=== PATIENT | male | born 2000 | race Caucasian/White ===

== ENCOUNTER 2025-01-23 17:16 | Inpatient (IN) | payer OTHER, SELFPAY ==
--- NOTE | ~2025-01-23 | CT_ITS ---
CLINICAL HISTORY: RLQ abdominal pain CT ABDOMEN AND PELVIS WITH CONTRAST COMPARISON: None. FINDINGS: This study is positive for acute appendicitis. The appendix is dilated and thick-walled, and contains multiple appendicoliths, for example seen on coronal image 28 of series 7. Appendix measures 13 mm in caliber on this image. Mild adjacent periappendiceal stranding/haziness is noted, and there is a tiny amount of periappendiceal free fluid. A small to moderate amount of pelvic free fluid is noted on axial image 69 of series 3. No abscess or free air. No evidence of a bowel obstruction. A trace right-sided pleural effusion is suspected. There is minimal right basilar atelectasis. No focal liver lesion. Gallbladder is unremarkable. No visible stone. Stomach is underdistended which limits assessment. No CT evidence of acute pancreatitis. Spleen and adrenal glands are unremarkable. Contrast is noted within the proximal renal collecting systems. No hydronephrosis bilaterally. Urinary bladder is underdistended but appears thick-walled. Correlation with urinalysis is advised. Abdominal aorta is normal in caliber without evidence of an aneurysm or dissection. No lymphadenopathy. No evidence of a bowel containing hernia. The bone windows demonstrate no acute abnormalities. IMPRESSION: 1. Positive study for acute appendicitis, with the appendix noted to be dilated and thick-walled, measuring 13 mm in caliber. There is mild adjacent periappendiceal stranding/haziness and a tiny amount of periappendiceal free fluid. There is also a small to moderate amount of pelvic free fluid. No abscess or free air. Surgical consultation is advised. 2. Urinary bladder is underdistended but appears thick-walled. Correlation with urinalysis is advised. 3. Trace right pleural effusion is suspected. Minimal right basilar atelectasis. 4. Additional findings are detailed above. This document has been electronically signed by: Agustín Melgar M.D. on 01/23/2025 23:17:37
[2025-01-23 18:22] VITALS: BP 128/86; PULSE 86; RESP 16; TEMP 36.8; O2SAT 99; BMI 18.5
--- NOTE | 2025-01-23 18:28 | ED.GENADULT ---
HPI - General Adult General Chief complaint: Abdominal Pain Stated complaint: Lower abd pain/Seen at [facility] t-1 Time Seen by Provider: 01/23/25 21:30 Source: patient Mode of arrival: ambulatory Limitations: no limitations History of Present Illness ED Provider: Dr. Tatiana Cleaning HPI narrative: patient comes to the emergency room complaining of periumbilical and right lower quadrant pain that started approximately 27 hours ago. Patient states that yesterday he was complaining of epigastric pain when his symptoms started, he went to [facility]. Patient was diagnosed with gastritis, given famotidine, symptoms seem to help a bit, discharged home. Patient states that when he woke up this morning, had a bit of pain but this time in the periumbilical area, patient ate a bowl of cereal, then the pain started getting worse. She denies any diarrhea, denies fever chills. Patient states that he is constant nonradiating pain in the right lower quadrant at this time. Related Data Allergies Allergy/AdvReac Type Severity Reaction Status Date / Time cat dander [cats] Allergy Intermediate Itchy Eyes Verified 01/23/25 18:25 Seasonal Allergies Allergy Intermediate Itchy Eyes Verified 01/23/25 18:25 Review of Systems Review of Systems: Constitutional : No Weight loss, No Fever, No Chills, No Night Sweats, No Fatigue, No Malaise ENT/Mouth : No Hearing loss, No Ear Pain, No Nasal Congestion, No Sinus Pain, No Hoarseness, No sore throat, No Rhinorrhea, No Swallowing Difficulty Eyes: No Eye Pain, No Swelling, No Redness, No Foreign Body, No Discharge, No Vision Changes Cardiovascular : No Chest Pain, No SOB, No Dyspnea on Exertion, No Orthopnea, No Edema, No Palpitations Respiratory : No Cough, No Sputum, No Wheezing, No Smoke Exposure, No Dyspnea Gastrointestinal : Yesterday patient had nausea and vomiting, no diarrhea, patient states that yesterday he started having epigastric pain, today complaining of periumbilical area that is slowly shifted towards the right lower quadrant Genitourinary : no irregular bleeding, No Dysuria, No Urinary Frequency, No Hematuria, No Urinary Incontinence, No Urgency, No Flank Pain, No Urinary Flow Changes, No Hesitancy Musculoskeletal : No joint pain, No Myalgias, No Joint Swelling Skin : No Skin Lesions, No rash Neuro : No Weakness, No Numbness, No Paresthesias, No Loss of Consciousness, No Dizziness, No Headache Psych : No Anxiety/Panic, No Depression, No SI/HI/AH/VH, No Social Issues, Heme/Lymph: No Bruising, No Bleeding,No Lymphadenopathy Endocrine : No Polyuria, No Polydipsia, No Temperature Intolerance [facility] Social History Social History Smoked in Last 30 Days: No Substance Use Type: Marijuana Substance Use Frequency: Daily Advance Directives: No Advance Directives Information Provided: No Physical Exam ED Vital Signs: Vital Signs - 24 hr 01/23/25 18:22 01/23/25 21:23 01/24/25 00:23 Temperature 98.2 F 98.2 F 98.7 F Pulse Rate 86 68 61 Respiratory Rate 16 16 14 Blood Pressure 128/86 121/79 114/65 Pulse Oximetry 99 97 99 Oxygen Delivery Method Room Air Room Air Room Air BMI result Body Mass Index 18.5 Const Other: Appearance: Alert. Oriented X3. seems a bit uncomfortable Eyes: Pupils equal, round and reactive to light. ENT: Pharynx normal. Neck: Normal inspection. Neck supple. No lymph nodes noted. No crepitus CVS: Normal heart rate and rhythm. Pulses normal. Normal S1 and S2 Respiratory: No respiratory distress. Breath sounds normal. No Wheezing. No rales Abdomen: Soft , tenderness to palpation in the right lower quadrant, mild rebound, no guarding, moderate pain to palpation at the McBurney's point, negative Pettit's sign Skin: Skin warm and dry. Normal skin color. Normal skin turgor. Extremities: No lower extremity edema. No Lacerations. No Rash Neuro: Oriented X 3. No motor deficit. No sensory deficit. Moving all extremities. No slurred speech. CN 2 through 12 grossly intact Psych: calm, cooperative, normal affect Course Course Course Narrative: RME: 24-year-old male presents to the ED for right lower quadrant abdominal pain with nausea vomiting. 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 Physical exam positive for right lower quadrant tenderness on palpation. Labs ordered Medications Administered Discontinued Medications Generic Name Dose Route Start Last Admin Trade Name Freq PRN Reason Stop Dose Admin Sodium Chloride 1,000 mls @ 999 mls/hr 01/23/25 21:32 01/23/25 23:54 Ns IVCONT 01/23/25 22:32 Infused .Q1H1M ONE Infusion Iohexol 85 ml 01/23/25 21:57 01/23/25 21:57 Iohexol 350 Mg/Ml 100 Ml Infus..Btl IV 01/23/25 21:58 85 ml ONCE ONE Administration Ketorolac Tromethamine 30 mg 01/23/25 21:32 01/23/25 21:57 Ketorolac Tromethamine 30 Mg/Ml Vial IVPUSH 01/23/25 21:33 30 mg ONCE ONE Administration Ondansetron HCl 4 mg 01/23/25 21:32 01/23/25 21:57 Ondansetron Hcl 4 Mg/2 Ml Vial IVPUSH 01/23/25 21:33 4 mg ONCE ONE Administration Medical Decision Making Medical Decision Making [facility] Narrative: patient's physical exam is concerning for acute appendicitis. Patient receiving IV fluids, Zofran and ketorolac, patient NPO patient's white blood cell count is 16.6, 86.8 neutrophils. No other abnormalities in patient's hematology, chemistry within normal limits. CT scan: Positive study for acute appendicitis, appendix is dilated, thick walled measuring 13 mm, no abscess or free air I discussed the patient with Dr. Dixon, patient being admitted at this time, 00:15, patient's vitals stable, no fever, no episodes of hypotension. Sepsis is not suspected. Lactic acid and blood cultures pending. patient states that he got significant pain relief with IV Toradol. 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 01/23/25 19:34 01/23/25 19:34 Labs: Lab Results 01/23/25 Range/Units 19:34 WBC 16.6 H (4.8-10.8) X10*3/uL RBC 5.42 (4.60-5.80) X10*6/uL Hgb 16.2 (14.0-18.0) g/dl Hct 45.6 (42.0-52.0) % MCV 84.1 (80.0-98.0) fL MCH 29.9 (27.0-33.0) pg MCHC 35.5 (31.0-36.0) g/dl RDW 11.8 (11.0-16.0) % Plt Count 211 (160-400) X10*3/uL MPV 10.0 (9.4-12.4) fL Immature Gran % (Auto) 0.5 H (0.0-0.4) % Neut % (Auto) 86.8 H (45-73) % Lymph % (Auto) 6.6 L (20-40) % [place] % (Auto) 5.9 (2-11) % Eos % (Auto) 0.0 (0-4) % Baso % (Auto) 0.2 (0-2) % Lymph # (Auto) 1.1 L (1.2-4.9) X10*3/uL [place] # (Auto) 1.0 (0.1-1.2) X10*3/uL Eos # (Auto) 0.0 (0.0-0.4) X10*3/uL Baso # (Auto) 0.0 (0.0-0.2) X10*3/uL Abs Immat Gran (auto) 0.08 H (0.00-0.03) X10*3/uL Absolute Neuts (auto) 14.4 H (2.0-8.3) x10*3/uL Absolute Nucleated RBC 0.000 (0.0-0.012) X10*3/uL Nucleated RBC % (auto) 0.0 (0.0-0.2) /100WBC Sodium 140 (135-145) mmol/L Potassium 3.7 (3.3-5.1) mmol/L Chloride 103 (96-108) mmol/L Carbon Dioxide 28 (22-29) mmol/L Anion Gap 13 (12-20) BUN 10 (9-16) mg/dL Creatinine 0.94 (0.5-1.4) mg/dL Estim Creat Clear Calc 98.8 Estimated GFR > 60 Random Glucose 92 (60-115) mg/dL Calcium 9.9 (8.4-10.2) mg/dL Total Bilirubin 0.9 (0.0-1.0) mg/dL AST 24 (5-37) U/L ALT 15 (0-40) U/L Alkaline Phosphatase 63 (39-117) U/L Total Protein 7.6 (6.5-8.0) g/dL Albumin 4.9 (3.5-5.0) g/dL Lipase 15 (8-78) U/L Independent Interpretation I performed an independent interpretation of an: CT Scan Radiology Impression Discussion of test interpretation with radiology: I have reviewed the radiologist's reading. Radiologist Impression: 1. Positive study for acute appendicitis, with the appendix noted to be dilated and thick-walled, measuring 13 mm in caliber. There is mild adjacent periappendiceal stranding/haziness and a tiny amount of periappendiceal free fluid. There is also a small to moderate amount of pelvic free fluid. No abscess or free air. Surgical consultation is advised. 2. Urinary bladder is underdistended but appears thick-walled. Correlation with urinalysis is advised. 3. Trace right pleural effusion is suspected. Minimal right basilar atelectasis. Critical Care Time Critical Care Time Critical Care Time: Yes Total Critical Care Time: 60 Attestation: I have personally provided critical care time. Time includes review of lab data, radiology results, discussion with consultants, and monitoring for potential decompensation. Intervention performed as documented. Discharge Plan Discharge Clinical Impression: Acute appendicitis Patient Disposition: Admitted As Inpatient Print Language: Kuwaiti
[2025-01-23 19:40] LABS: MANUAL DIFF FLAG NO
[2025-01-23 19:45] LABS: Basophils Percent Auto 0.2 % (0-2); Hematocrit 45.6 % (42.0-52.0); Hemoglobin 16.2 g/dl (14.0-18.0); Imm Gran Abs Auto 0.08 X10*3/uL (0.00-0.03); Imm Gran Pct Auto 0.5 % (0.0-0.4); Lymphocytes Absolute Auto 1.1 X10*3/uL (1.2-4.9); Lymphocytes Percent Auto 6.6 % (20-40); Mean Corpuscular HGB Conc 35.5 g/dl (31.0-36.0); Mean Corpuscular Hemoglobin 29.9 pg (27.0-33.0); Mean Corpuscular Volume 84.1 fL (80.0-98.0); Monocytes Percent Auto 5.9 % (2-11); Neutrophils Absolute Auto 14.4 x10*3/uL (2.0-8.3); Neutrophils Percent Auto 86.8 % (45-73); Platelet Count 211 X10*3/uL (160-400); Red Blood Count 5.42 X10*6/uL (4.60-5.80); Red Cell Distribution Width 11.8 % (11.0-16.0); White Blood Count 16.6 X10*3/uL (4.8-10.8)
[2025-01-23 19:54] LABS: Alanine Aminotransferase 15 U/L (0-40); Albumin Level 4.9 g/dL (3.5-5.0); Alkaline Phosphatase 63 U/L (39-117); Anion Gap 13 (12-20); Aspartate Amino Transferase 24 U/L (5-37); Bilirubin Total 0.9 mg/dL (0.0-1.0); Blood Urea Nitrogen 10 mg/dL (9-16); Calcium 9.9 mg/dL (8.4-10.2); Carbon Dioxide 28 mmol/L (22-29); Chloride 103 mmol/L (96-108); Creatinine Clr Calc Pharmacy 98.8; Estimated Glomerular Filt Rate > 60; Glucose Random 92 mg/dL (60-115); Lipase 15 U/L (8-78); Potassium 3.7 mmol/L (3.3-5.1); Sodium 140 mmol/L (135-145); Total Protein 7.6 g/dL (6.5-8.0)
[2025-01-23 21:23] VITALS: BP 121/79; PULSE 68; RESP 16; TEMP 36.8; O2SAT 97
[2025-01-23] MEDS: 0.9 % Sodium Chloride 1,000 ML 999 ML IVCONT (21:57)
[2025-01-23] MEDS: iohexoL 350 MG/ML 100 ML INFUS..BTL 85 ML IV (21:57)
[2025-01-23] MEDS: Ketorolac Tromethamine 30 MG/ML VIAL IVPUSH (21:57)
[2025-01-23] MEDS: ondansetron HCL 4 MG/2 ML VIAL IVPUSH (21:57)
--- NOTE | 2025-01-23 23:56 | PC.NURSE ---
assumed care of patient at 23:15. report received from Izabel FREY
[2025-01-24] VITALS (13 sets, daily range): BP systolic 90–122; BP diastolic 36–82; PULSE 58–97; RESP 14–18; TEMP 36.3–37.1; O2SAT 95–99; BMI 18.5
[2025-01-24] MEDS: Piperacillin Sodium/Tazobactam 3.375 GM in 0.9 % Sodium Chloride 50 ML IV ×3 (00:53→12:30)
[2025-01-24 00:58] LABS: Lactic Acid 0.8 mmol/L (0.5-2.0)
[2025-01-24] MEDS: Lactated Ringers 1,000 ML 100 ML IVCONT ×3 (01:24→15:45)
[2025-01-24] MEDS: Morphine Sulfate 2 MG/ML CARTRIDGE IVPUSH (01:24)
--- NOTE | 2025-01-24 05:13 | PC.NURSE ---
pt sleeping comfortably on stretcher in no apparent distress, denies any acute pain or distress. reports relief of pain from morphine administration. respirations even and unlabored. plan of care continues.
--- NOTE | 2025-01-24 07:41 | PC.NURSE ---
Dr Ascencio at bedside for surgical eval. dr Dixon messaged via [employer] for prn pain medication.
--- NOTE | 2025-01-24 07:57 | PM.HPGS ---
History of Present Illness History of Present Illness Date of Service: 01/24/25 Chief complaint: abd pain Narrative: Bon Stoner is a 24 year old male otherwise healthy, here in the ER because of abdominal pain. He says this started last WednesdayJanuary 22 night at around 18:00. He points to the area just below the umbilicus to the right of the midline. 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 He decided to come to the emergency room in [facility] yesterday. He says he spent 12 hours there but was told that he had just reflux. He was sent home but his pain persisted so his mother brought him to the emergency room last night. He states that his pain had been worsening. He had some vomiting yesterday about 3 episodes. He denies any fever or chills. He denies any diarrhea or other GI complaints. Review of Systems Constitutional: Constitutional: Denies chills and Denies fever(s) Cardiovascular: Cardiovascular: Denies chest pain, Denies dyspnea and Denies dyspnea on exertion Respiratory: Respiratory: Denies cough, Denies dyspnea and Denies dyspnea on exertion Gastrointestinal: Gastrointestinal: Denies hematochezia and Denies change in bowel habits Genitourinary: Genitourinary: Denies hematuria and Denies difficulty urinating Musculoskeletal: Musculoskeletal: Denies back pain and Denies limited range of motion Neurologic: Denies focal weakness and Denies convulsions Psychiatric: Psychiatric: Denies depression and Denies mood swings PMFSH Social History Social History Patient Tobacco Use Status: Never used Tobacco Smoked in Last 30 Days: No Substance Use Type: Marijuana Substance Use Frequency: Daily Advance Directives: No Advance Directives Information Provided: No Nutrition Risks: No Nutritional Risk Meds Allergies Allergy/AdvReac Type Severity Reaction Status Date / Time cat dander [cats] Allergy Intermediate Itchy Eyes Verified 01/23/25 18:25 Seasonal Allergies Allergy Intermediate Itchy Eyes Verified 01/23/25 18:25 Active Medications: Current Medications Acetaminophen (Acetaminophen 325 Mg Tablet) 650 mg PO Q6H PRN PRN Reason: Pain, Mild 1-3,fever,headache Lactated Ringer's (Lr) 1,000 mls @ 100 mls/hr IVCONT .Q10H [facility]NA[facility] Last Admin: 01/24/25 01:24 Dose: 100 mls/hr Piperacillin Sod/Tazobactam (Sod 3.375 gm/ Sodium Chloride) 50 mls @ 100 mls/hr IV RQ6H [facility] Last Infusion: 01/24/25 06:47 Dose: Infused Melatonin (Melatonin 3 Mg Tablet) 6 mg PO BEDTIME PRN PRN Reason: Insomnia Morphine Sulfate (Morphine Sulfate 4 Mg/Ml Cartridge) 3 mg IVPUSH Q4H PRN; Protocol PRN Reason: Pain, Severe (Pain Scale 7-10) Ondansetron HCl (Ondansetron Hcl 4 Mg/2 Ml Vial) 4 mg IVPUSH Q6H PRN PRN Reason: Nausea Sodium Chloride (0.9 % Sodium Chloride Flush 3 Ml Syringe) 3 ml IVFLUSH [facility] Last Admin: 01/24/25 07:03 Dose: Not Given Sodium Chloride (0.9 % Sodium Chloride Flush 3 Ml Syringe) 3 ml IVFLUSH [facility] Home Medications ?Medication ?Instructions ?Recorded ?Confirmed ?Last Taken ?Type No Known Home Meds 01/24/25 01/24/25 Unknown History Physical Exam Vital Signs: Vital Signs: Last Vital Signs Temp 98.7 F 01/24/25 00:23 Pulse 61 01/24/25 00:23 Resp 14 01/24/25 04:10 BP 114/65 01/24/25 00:23 Pulse Ox 99 01/24/25 04:10 O2 Del Method Room Air 01/24/25 04:10 BMI result Body Mass Index 18.5 Const: General: comfortable and no acute distress Orientation/consciousness: patient oriented x3 Neck: Neck: Yes no lymphadenopathy Resp: Auscultation: clear to auscultation bilaterally Cardio: Rhythm: regular rhythm GI: Palpation (GI): Soft to palpation, Tenderness to palpation present (GI) (Right lower quadrant tenderness) and no guarding Neuro: General: patient oriented x3 Results Results Labs: Short CBC 01/23/25 Range/Units 19:34 WBC 16.6 H (4.8-10.8) X10*3/uL Hgb 16.2 (14.0-18.0) g/dl Hct 45.6 (42.0-52.0) % Plt Count 211 (160-400) X10*3/uL BMP 01/23/25 19:34 Sodium 140 Potassium 3.7 Chloride 103 Carbon Dioxide 28 BUN 10 Creatinine 0.94 Calcium 9.9 Liver Function 01/23/25 Range/Units 19:34 Total Bilirubin 0.9 (0.0-1.0) mg/dL AST 24 (5-37) U/L ALT 15 (0-40) U/L Alkaline Phosphatase 63 (39-117) U/L Albumin 4.9 (3.5-5.0) g/dL Abdomen CT scan report/results: report reviewed and image reviewed CT scan - pelvis: report reviewed and image reviewed Additional studies: IMPRESSION: 1. Positive study for acute appendicitis, with the appendix noted to be dilated and thick-walled, measuring 13 mm in caliber. There is mild adjacent periappendiceal stranding/haziness and a tiny amount of periappendiceal free fluid. There is also a small to moderate amount of pelvic free fluid. No abscess or free air. Surgical consultation is advised. 2. Urinary bladder is underdistended but appears thick-walled. Correlation with urinalysis is advised. 3. Trace right pleural effusion is suspected. Minimal right basilar atelectasis. 4. Additional findings are detailed above. Assessment and Plan (1) Acute appendicitis: Status: Acute 24-year-old male otherwise healthy, with right lower quadrant pain for about 36 hours now. I have reviewed his CAT scan and this shows findings consistent with acute appendicitis with a thickened, edematous appendix, periappendiceal inflammatory changes and appendicoliths I explained to him the option of proceeding with laparoscopic appendectomy. I reviewed with him the technique of this procedure. I explained the risks including but not limited to bleeding, infections, conversion to open, staple line leak, abscess formation, inherent risks of anesthesia, as well as the benefits and alternatives. I explained to him that in view of the presence of appendicoliths, it is likely that the appendicitis we will resolve with IV antibiotics alone. He understands and wants to proceed. His mother was with him during the visit . Review of his CAT scans also show some trace effusion in the right side likely sympathetic from his inflammatory process in the abdomen. He denies any auditory issues. Quality VTE VTE Risk Level:: Surgical - low VTE Device Contraindication: N/A - Device Ordered VTE Drug Contraindication: Treatment Not Indicated Procedures Date of Service Date of Service: 01/24/25
--- NOTE | 2025-01-24 08:10 | PC.NURSE ---
Pt resting comfortably. pt educated that there are PRN pain med orders and he can receive medication for pain. declines at this time.
--- NOTE | 2025-01-24 08:22 | PHA.MEDREC ---
Addendum entered by Tiffany Beverly RPh 01/24/25 08:25: Reviewed by [facility] Original Note: Pharmacy Consult ? Medication Reconciliation Pharmacy has completed the medication reconciliation. Pt confirmed he takes nothing at this time for Prescription or OTC medication.
--- NOTE | 2025-01-24 11:54 | P.CONAN_ITS ---
HPI - Anesthesia Eval Consult details Narrative: akhil ROMAN Active Problems Active Problems: All Active Problems (Updated 01/24/25 @ 09:59 by Carolina Chacko RN) Acute appendicitis (Acute) Past Medical History Medical History Marijuana smoker Pneumonia Asthma Allergies Family History Family history of problems with anesthesia: No Surgical History Surgical History Hx of wisdom tooth extraction Hx of chest tube placement History of Problems with Anesthesia: No Social History Social History Comment: after OR Patient Tobacco Use Status: Never used Tobacco Smoked in Last 30 Days: No Substance Use Type: Marijuana Substance Use Frequency: Daily Have you been hit, kicked, punched, or otherwise hurt by someone within the past year? If so, by whom?: No Are you DNR?: No Advance Directives: No Advance Directives Information Provided: No Nutrition Risks: No Nutritional Risk Meds Allergies Allergy/AdvReac Type Severity Reaction Status Date / Time cat dander [cats] Allergy Intermediate Itchy Eyes Verified 01/23/25 18:25 Seasonal Allergies Allergy Intermediate Itchy Eyes Verified 01/23/25 18:25 Active Medications: Current Medications Acetaminophen (Acetaminophen 325 Mg Tablet) 650 mg PO Q6H PRN PRN Reason: Pain, Mild 1-3,fever,headache Lactated Ringer's (Lr) 1,000 mls @ 100 mls/hr IVCONT .Q10H [facility] Last Admin: 01/24/25 10:51 Dose: 100 mls/hr Piperacillin Sod/Tazobactam (Sod 3.375 gm/ Sodium Chloride) 50 mls @ 100 mls/hr IV RQ6H [facility] Last Infusion: 01/24/25 06:47 Dose: Infused Lactated Ringer's (Lr) 1,000 mls @ 50 mls/hr IVCONT .Q20H [facility] Ketorolac Tromethamine (Ketorolac Tromethamine 15 Mg/Ml Vial) 15 mg IVPUSH Q6H PRN PRN Reason: Pain, Severe (Pain Scale 7-10) Melatonin (Melatonin 3 Mg Tablet) 6 mg PO BEDTIME PRN PRN Reason: Insomnia Morphine Sulfate (Morphine Sulfate 4 Mg/Ml Cartridge) 3 mg IVPUSH Q4H PRN; Protocol PRN Reason: Pain, Severe (Pain Scale 7-10) Ondansetron HCl (Ondansetron Hcl 4 Mg/2 Ml Vial) 4 mg IVPUSH Q6H PRN PRN Reason: Nausea Sodium Chloride (0.9 % Sodium Chloride Flush 3 Ml Syringe) 3 ml IVFLUSH [facility] Last Admin: 01/24/25 07:03 Dose: Not Given Sodium Chloride (0.9 % Sodium Chloride Flush 3 Ml Syringe) 3 ml IVFLUSH [facility] Last Admin: 01/24/25 08:27 Dose: Not Given Home Medications ?Medication ?Instructions ?Recorded ?Confirmed ?Last Taken ?Type albuterol 90 mcg/actuation aerosol mcg inhalation 01/24/25 10/24/24 History inhaler cetirizine 10 mg capsule (Zyrtec) mg 01/24/25 12/24/24 History Exam Height,Weight and Vital Signs: Height 5 ft 9 in Weight 56.699 kg Last Vital Signs Temp 97.5 F 01/24/25 09:52 Pulse 68 01/24/25 09:52 Resp 18 01/24/25 09:52 BP 118/69 01/24/25 09:52 Pulse Ox 98 01/24/25 09:52 O2 Del Method Room Air 01/24/25 09:52 Pertinent Lab Results Pertinent Lab Results: Laboratory Tests 01/23/25 01/24/25 19:34 00:37 WBC 16.6 H RBC 5.42 Hgb 16.2 Hct 45.6 MCV 84.1 MCH 29.9 MCHC 35.5 RDW 11.8 Plt Count 211 MPV 10.0 Immature Gran % (Auto) 0.5 H Neut % (Auto) 86.8 H Lymph % (Auto) 6.6 L [place] % (Auto) 5.9 Eos % (Auto) 0.0 Baso % (Auto) 0.2 Lymph # (Auto) 1.1 L [place] # (Auto) 1.0 Eos # (Auto) 0.0 Baso # (Auto) 0.0 Abs Immat Gran (auto) 0.08 H Absolute Neuts (auto) 14.4 H Absolute Nucleated RBC 0.000 Nucleated RBC % (auto) 0.0 Sodium 140 Potassium 3.7 Chloride 103 Carbon Dioxide 28 Anion Gap 13 BUN 10 Creatinine 0.94 Estim Creat Clear Calc 98.8 Estimated GFR > 60 Random Glucose 92 Lactic Acid 0.8 Calcium 9.9 Total Bilirubin 0.9 AST 24 ALT 15 Alkaline Phosphatase 63 Total Protein 7.6 Albumin 4.9 Lipase 15 Airway Mallampati Class: II TM Dist: >3cm Neck ROM: Full Heart: rrr Lungs: cta Assessment and Plan Assessment Anesthesia Assessment: Anesthesia Plan Discussed and Chart Reviewed Final Anesthetic Review Family History of Problems with Anesthesia: No History of Problems with Anesthesia: No NPO: Yes ASA Class: II (marihuana use) Final Preanesthetic Review: No Changes in Pt Med Stat, Meds/Allgs Chart Reviewed, Consent Obtained/Reviewed and Anes Risks/Benef Reviewed Patient Risk: Low Procedure Risk: Low Anesthetic Plan Anesthetic Plan: GA Disposition: Standard PACU
--- NOTE | 2025-01-24 12:09 | PM.HPGS ---
History of Present Illness History of Present Illness Date of Service: 01/24/25 <Marleny Guzman PA-C - Last Filed: 01/24/25 12:20> 01/24/25 <Rob Carrera MD - Last Filed: 01/24/25 12:43> Chief complaint: abd pain <Marleny Guzman PA-C - Last Filed: 01/24/25 12:20> Narrative: Bon Stoner is a 24 year old male with no significant PMH who presented to the ED with complaints of RLQ pain. Patient reports he developed epigastric/periumbilical pain two days ago that eventually migrated to the RLQ. He was seen at [facility] and diagnosed with gastritis and sent home. He however had persistence and worsening of the pain prompting him to seek evaluation at [facility] ED. The pain was associated with nausea and multiple episodes of vomiting. He denies fever, chills, diarrhea. Work up in the ED included a CBC, BMP, LFTs which was significant for a leukocytosis of 16.6. CT scan abd/pelvis showed dilated and thick-walled appendix with appendicoliths and mild adjacent periappendiceal stranding/haziness. He denies previous abdominal surgery. He reports occasional drinking of a wine cooler and reports daily marijuana smoking. <Marleny Guzman PA-C - Last Filed: 01/24/25 12:20> Review of Systems Review of Systems: Yes all other systems are reviewed and are negative <Marleny Guzman PA-C - Last Filed: 01/24/25 12:20> PMFSH Past Medical History Medical History: Medical History Marijuana smoker Pneumonia Asthma Allergies <Marleny Guzman PA-C - Last Filed: 01/24/25 12:20> Surgical History Surgical History: Surgical History Hx of wisdom tooth extraction Hx of chest tube placement <Marleny Guzman PA-C - Last Filed: 01/24/25 12:20> Social History Social History: Social History Comment: after OR Patient Tobacco Use Status: Never used Tobacco Smoked in Last 30 Days: No Substance Use Type: Marijuana Substance Use Frequency: Daily Have you been hit, kicked, punched, or otherwise hurt by someone within the past year? If so, by whom?: No Are you DNR?: No Advance Directives: No Advance Directives Information Provided: No Nutrition Risks: No Nutritional Risk <Marleny Guzman PA-C - Last Filed: 01/24/25 12:20> Meds Allergies/Adverse reactions: Allergies Allergy/AdvReac Type Severity Reaction Status Date / Time cat dander [cats] Allergy Intermediate Itchy Eyes Verified 01/23/25 18:25 Seasonal Allergies Allergy Intermediate Itchy Eyes Verified 01/23/25 18:25 <Marleny Guzman PA-C - Last Filed: 01/24/25 12:20> Active Medications: Current Medications Acetaminophen (Acetaminophen 325 Mg Tablet) 650 mg PO Q6H PRN PRN Reason: Pain, Mild 1-3,fever,headache Fentanyl (Fentanyl Citrate/Pf 100 Mcg/2 Ml Vial) 25 mcg IVPUSH Q5M PRN PRN Reason: Pain, Moderate to Severe (Pain Scale 4-10) Stop: 01/24/25 17:57 Lactated Ringer's (Lr) 1,000 mls @ 100 mls/hr IVCONT .Q10H [facility] Last Admin: 01/24/25 10:51 Dose: 100 mls/hr Piperacillin Sod/Tazobactam (Sod 3.375 gm/ Sodium Chloride) 50 mls @ 100 mls/hr IV RQ6H [facility] Last Infusion: 01/24/25 06:47 Dose: Infused Lactated Ringer's (Lr) 1,000 mls @ 50 mls/hr IVCONT .Q20H [facility] Ketorolac Tromethamine (Ketorolac Tromethamine 15 Mg/Ml Vial) 15 mg IVPUSH Q6H PRN PRN Reason: Pain, Severe (Pain Scale 7-10) Melatonin (Melatonin 3 Mg Tablet) 6 mg PO BEDTIME PRN PRN Reason: Insomnia Morphine Sulfate (Morphine Sulfate 4 Mg/Ml Cartridge) 3 mg IVPUSH Q4H PRN; Protocol PRN Reason: Pain, Severe (Pain Scale 7-10) Naloxone HCl (Naloxone Hcl 0.4 Mg/Ml Vial) 0.04 mg IVPUSH Q5M PRN PRN Reason: Excessive sedation or RR < 8 Ondansetron HCl (Ondansetron Hcl 4 Mg/2 Ml Vial) 4 mg IVPUSH Q6H PRN PRN Reason: Nausea Ondansetron HCl (Ondansetron Hcl 4 Mg/2 Ml Vial) 4 mg IVPUSH ONCE PRN PRN Reason: Nausea and Vomiting Stop: 01/24/25 17:57 Sodium Chloride (0.9 % Sodium Chloride Flush 3 Ml Syringe) 3 ml IVFLUSH [facility] Last Admin: 01/24/25 07:03 Dose: Not Given Sodium Chloride (0.9 % Sodium Chloride Flush 3 Ml Syringe) 3 ml IVFLUSH [facility] Last Admin: 01/24/25 08:27 Dose: Not Given <CODY Brenner Last Filed: 01/24/25 12:20> Home medications: Home Medications ?Medication ?Instructions ?Recorded ?Confirmed ?Last Taken ?Type albuterol 90 mcg/actuation aerosol mcg inhalation 01/24/25 10/24/24 History inhaler cetirizine 10 mg capsule (Zyrtec) mg 01/24/25 12/24/24 History <CODY Brenner Last Filed: 01/24/25 12:20> Physical Exam Vital Signs: Vital Signs: Last Vital Signs Temp 97.5 F 01/24/25 09:52 Pulse 68 01/24/25 09:52 Resp 18 01/24/25 09:52 BP 118/69 01/24/25 09:52 Pulse Ox 98 01/24/25 09:52 O2 Del Method Room Air 01/24/25 09:52 BMI result Body Mass Index 18.5 <CODY Brenner Last Filed: 01/24/25 12:20> Const: General: comfortable, no acute distress and alert <CODY Brenner Last Filed: 01/24/25 12:20> Orientation/consciousness: patient oriented x3 <CODY Brenner Last Filed: 01/24/25 12:20> Resp: Effort & Inspection: normal respiratory effort, able to speak in complete sentences and not labored <Marleny Guzman PA-C Last Filed: 01/24/25 12:20> GI: Palpation (GI): Soft to palpation and Tenderness to palpation present (GI) in the RLQ (moderate ), at McBurney's point and Rovsing's sign positive; with no rebound tenderness <CODY Brenner Last Filed: 01/24/25 12:20> Skin: General skin exam: no rashes or lesions noted <Marleny Guzman PA-C Last Filed: 01/24/25 12:20> Neuro: General: patient oriented x3 and moves all extremities <Marleny Guzman PA-C Filed: 01/24/25 12:20> Extrem: General: Yes no clubbing, cyanosis or edema <Marleny Guzman PA-C Filed: 01/24/25 12:20> Results Results Labs: Short CBC 01/23/25 Range/Units 19:34 WBC 16.6 H (4.8-10.8) X10*3/uL Hgb 16.2 (14.0-18.0) g/dl Hct 45.6 (42.0-52.0) % Plt Count 211 (160-400) X10*3/uL BMP 01/23/25 19:34 Sodium 140 Potassium 3.7 Chloride 103 Carbon Dioxide 28 BUN 10 Creatinine 0.94 Calcium 9.9 Liver Function 01/23/25 Range/Units 19:34 Total Bilirubin 0.9 (0.0-1.0) mg/dL AST 24 (5-37) U/L ALT 15 (0-40) U/L Alkaline Phosphatase 63 (39-117) U/L Albumin 4.9 (3.5-5.0) g/dL <CODY Brenner Filed: 01/24/25 12:20> Abdomen CT scan report/results: report reviewed and image reviewed <Marleny Guzman PA-C Filed: 01/24/25 12:20> Assessment and Plan (1) Acute appendicitis: Qualifiers: Acute appendicitis type: with localized peritonitis Appendicitis gangrene presence: unspecified whether gangrene present Appendicitis perforation presence: unspecified whether perforation present Appendicitis abscess presence: unspecified whether abscess present Qualified Code(s): K35.30 - Acute appendicitis with localized peritonitis, without perforation or gangrene <Marleny Guzman PA-C - Last Filed: 01/24/25 12:20> Status: Acute <Marleny Guzman PA-C - Last Filed: 01/24/25 12:20> 24 year old male with acute onset of periumbilical abd pain that migrated to his RLQ for 2 days associated with nausea/vomiting with RLQ tenderness and positive rovsing sign. He has a leukocytosis and CT scan showing dilated, thickened appendix with appendicoliths. Clinical picture suggestive of acute appendicitis. Given the presence of appendicoliths, it was recommended to proceed with laparoscopic appendectomy, possible open. Risks, benefits, alternatives of laparoscopic possible open appendectomy were reviewed with the patient and included but not limited to bleeding, infection, numbness, pain, scarring, bowel or bladder injury or staple line leak and the patient wishes to proceed. He was added onto the OR schedule for today. Cont NPO status, IV zosyn. <Marleny Guzman PA-C - Last Filed: 01/24/25 12:20> 24 year old male with acute onset of periumbilical abd pain that migrated to his RLQ for 2 days associated with nausea/vomiting with RLQ tenderness and positive rovsing sign. He has a leukocytosis and CT scan showing dilated, thickened appendix with appendicoliths. Clinical picture suggestive of acute appendicitis. Given the presence of appendicoliths, it was recommended to proceed with laparoscopic appendectomy, possible open. Risks, benefits, alternatives of laparoscopic possible open appendectomy were reviewed with the patient and included but not limited to bleeding, infection, numbness, pain, scarring, bowel or bladder injury or staple line leak and the patient wishes to proceed. He was added onto the OR schedule for today. Cont NPO status, IV zosyn. Patient seen and examined independently and I agree with the above assessment and plan. I reviewed the procedure, risks, and alternatives, he gives his consent for a laparoscopic or possible open cholecystectomy. <Rob Carrera MD - Last Filed: 01/24/25 12:43> Quality Stroke Does the patient have a stroke diagnosis?: No <Marleny Guzman PA-C - Last Filed: 01/24/25 12:20> VTE Prior VTE?: No <Marleny Guzman PA-C - Last Filed: 01/24/25 12:20> VTE Risk Level:: Surgical - low <Marleny Guzman PA-C - Last Filed: 01/24/25 12:20> VTE Device Contraindication: N/A - Device Ordered <Marleny Guzman PA-C - Last Filed: 01/24/25 12:20> VTE Drug Contraindication: Treatment Not Indicated <Marleny Guzman PA-C - Last Filed: 01/24/25 12:20> Procedures Date of Service Date of Service: 01/24/25 <Marleny Guzman PA-C - Last Filed: 01/24/25 12:20> 01/24/25 <Rob Carrera MD - Last Filed: 01/24/25 12:43>
--- NOTE | 2025-01-24 13:28 | W.PM.OPN ---
Operative Note Operative Note Date of Service: 01/24/25 Narrative: Preoperative diagnosis: Acute appendicitis Postoperative diagnosis: Same Procedure: Laparoscopic appendectomy Surgeon: Rob Carrera MD Tunnel Form Placing Supervisor: Marleny Guzman PA-C; ARLENE Huizar Anesthesia: General endotracheal Indications for procedure: 24-year-old male patient presenting with 48 hour history of abdominal pain beginning in the epigastric region radiating to the right lower quadrant. Workup with CT abdomen and pelvis revealed a dilated appendix with fecalith suggestive of acute appendicitis. Operative findings: Acutely inflamed appendix without perforation or abscess. Specimen: Appendix Estimated blood loss: Less than 2 mL Complications: None Procedure details: Patient was brought to the OR and placed in a supine position. After administering general anesthesia the patient's abdomen was prepped with ChloraPrep and draped in a sterile fashion. A surgical time-out was called the consent confirmed. Patient received preoperative antibiotics and Venodyne boots were in place. Local anesthesia was infiltrated in a periumbilical region. A 5 mm incision was made below the umbilicus and carried into the subcutaneous tissue. A Veress needle was then inserted while elevating the abdominal cavity with towel clips. After positive drop test the abdomen was insufflated to a pressure 15 mmHg. The Veress needle was removed and a 5 mm trocar inserted under direct vision. A 2nd 5 mm trocar was placed in the lower midline and a 12 mm trocar placed in the left lower quadrant. The patient was then placed in a [id number] position with Trendelenburg. Cecum was identified as well as the entrance of the ileum. The appendix was noted below this and was brought up into view. Mesentery of the appendix was then divided using the LigaSure. An endo BIMAL 30 purple was then obtained and the base of the appendix stapled and divided. Appendix was then placed in an Endo-Catch bag and brought out through the epigastric incision. The abdomen was then re-examined and no bleeding could be identified. CO2 was then evacuated. All trocars were removed. Fascia was closed in the left lower quadrant incision using a [id number] 0 Polysorb suture. Skin was closed in all incisions using a subcuticular 4-0 Polysorb suture. Sterile dressings consisting of Steri-Strips, 2 x 2 gauze and Tegaderm were then applied. The patient tolerated the procedure well. Sponge, instrument, and needle counts reported as correct. The patient was transferred to PACU in stable condition.
--- NOTE | 2025-01-24 15:47 | MHC.CM.PN ---
pt isindepedent and workig willnot need services when dcd
[2025-01-24] MEDS: Ketorolac Tromethamine 15 MG/ML VIAL IVPUSH (20:17)
[2025-01-25] MEDS: Lactated Ringers 1,000 ML 100 ML IVCONT (01:16)
[2025-01-25 03:54] VITALS: BP 115/58; PULSE 71; RESP 18; TEMP 36.7; O2SAT 98
--- NOTE | 2025-01-25 07:02 | PM.PNGS ---
Subjective Subjective Date of Service: 01/25/25 [facility] - Last Filed: 01/25/25 07:26> 01/25/25 <Marleny Guzman PA-C - Last Filed: 01/25/25 07:56> 01/25/25 <Rob Carrera MD - Last Filed: 01/25/25 09:30> Interval history: Bon is a 24 year-old male s/p appendectomy. He reports doing well overall today. He states he has pain mostly around the incision site in the lower right abdomen. He states the pain is mild when he is at rest, but when he is up and moving around the pain is a 7/10. He did not have a bowel movement yet but reports passing flatus. He states he had a cheeseburger yesterday and is taking it down okay. He also reports consistent use with the spirometer, using it about 5 times in a 20 minute period. He denies any fever, chills, nausea, vomiting, chest pain, or shortness of breath. <[facility] Last Filed: 01/25/25 07:26> Physical Exam Vital Signs: Vital Signs: Last Vital Signs Temp 98.1 F 01/25/25 03:54 Pulse 71 01/25/25 03:54 Resp 18 01/25/25 03:54 BP 115/58 L 01/25/25 03:54 Pulse Ox 98 01/25/25 03:54 O2 Del Method Room Air 01/25/25 03:54 BMI result Body Mass Index 18.5 <[facility] Last Filed: 01/25/25 07:26> Const: General: healthy appearing and no acute distress <[facility] Last Filed: 01/25/25 07:26> Orientation/consciousness: patient oriented x3 <[facility] Last Filed: 01/25/25 07:26> Resp: Effort & Inspection: normal respiratory effort <[facility] Last Filed: 01/25/25 07:26> Auscultation: clear to auscultation bilaterally <[facility] Last Filed: 01/25/25 07:26> Cardio: Rate: regular rate <[facility] Last Filed: 01/25/25 07:26> Rhythm: regular rhythm [facility] Last Filed: 01/25/25 07:26> Heart sounds: S1 normal heart sound present and S2 normal heart sound present [facility] Last Filed: 01/25/25 07:26> GI: Inspection: Yes incision (dressings intact ) <Marleny Guzman PA-C - Last Filed: 01/25/25 07:56> Palpation (GI): Soft to palpation and Tenderness to palpation present (GI) (Pain to palpation around the incision site in the right lower abdomen. ) [facility] Last Filed: 01/25/25 07:26> Percussion: Yes normal to percussion <Marleny Guzman PA-C - Last Filed: 01/25/25 07:56> Skin: Other: Dressing in the right lower abdomen appears slightly bloody. Otherwise dressings are, clear, dry and intact. <[facility] Last Filed: 01/25/25 07:26> Neuro: General: patient oriented x3 <[facility] Last Filed: 01/25/25 07:26> Objective Data Active Medications Acetaminophen (Acetaminophen 325 Mg Tablet) 650 mg PO Q6H PRN PRN Reason: Pain, Mild 1-3,fever,headache Lactated Ringer's (Lr) 1,000 mls @ 100 mls/hr IVCONT .Q10H [facility] Last Admin: 01/25/25 01:16 Dose: 100 mls/hr Documented By: ZOIE Ketorolac Tromethamine (Ketorolac Tromethamine 15 Mg/Ml Vial) 15 mg IVPUSH Q6H PRN PRN Reason: Pain, Severe (Pain Scale 7-10) Last Admin: 01/24/25 20:17 Dose: 15 mg Documented By: ZOIE Melatonin (Melatonin 3 Mg Tablet) 6 mg PO BEDTIME PRN PRN Reason: Insomnia Morphine Sulfate (Morphine Sulfate 4 Mg/Ml Cartridge) 3 mg IVPUSH Q4H PRN; Protocol PRN Reason: Pain, Severe (Pain Scale 7-10) Ondansetron HCl (Ondansetron Hcl 4 Mg/2 Ml Vial) 4 mg IVPUSH Q6H PRN PRN Reason: Nausea Sodium Chloride (0.9 % Sodium Chloride Flush 3 Ml Syringe) 3 ml IVFLUSH [facility] Last Admin: 01/24/25 23:47 Dose: Not Given Documented By: ZOIE Non-Admin Reason: IV Running Sodium Chloride (0.9 % Sodium Chloride Flush 3 Ml Syringe) 3 ml IVFLUSH [facility] Last Admin: 01/25/25 00:27 Dose: Not Given Documented By: ZOIE Non-Admin Reason: IV Running <[facility] - Last Filed: 01/25/25 07:26> Labs CBC & Chem 7: 01/23/25 19:34 01/23/25 19:34 <[facility] - Last Filed: 01/25/25 07:26> Microbiology Microbiology Results: Microbiology 01/24/25 00:37 Blood Culture - Preliminary Blood - Venous No growth after 24 hours. 01/24/25 00:37 Blood Culture - Preliminary Blood - Venous No growth after 24 hours. <[facility] - Last Filed: 01/25/25 07:26> Procedures Date of Service Date of Service: 01/25/25 <[facility] - Last Filed: 01/25/25 07:26> 01/25/25 <Marleny Guzman PA-C - Last Filed: 01/25/25 07:56> 01/25/25 <Rob Carrera MD - Last Filed: 01/25/25 09:30> Progress Note: A&P Assessment and plan (1) S/P laparoscopic appendectomy: Status: Acute <[facility] Last Filed: 01/25/25 07:26> Assessment and Plan: Bon is a 24 year-old male s/p appendectomy. He reports doing well overall today. His abdomen is soft with mild tenderness around the incision site in the lower right abdomen. He states he is mostly in pain when he is getting out of bed and walking around. He did not have a bowel movement yet but reports passing flatus. He states he had a cheeseburger yesterday and is tolerating that well. He also reports consistent use with the spirometer, using it about 5 times in a 20 minute period. His WBC is elevated at 16.6, consistent with expected postoperative leukocytosis. H&H is within normal limits. He denies any fever, chills, nausea, vomiting, chest pain, or shortness of breath. Patient is in stable condition and ready for discharge. <Aubrey Grigsby - Last Filed: 01/25/25 07:26> Bon is a 24 year-old male s/p appendectomy. He reports doing well overall today. His abdomen is soft with mild tenderness around the incision site in the lower right abdomen. He states he is mostly in pain when he is getting out of bed and walking around. He did not have a bowel movement yet but reports passing flatus. He states he had a cheeseburger yesterday and is tolerating that well. He also reports consistent use with the spirometer, using it about 5 times in a 20 minute period. His WBC is elevated at 16.6, consistent with expected postoperative leukocytosis. H&H is within normal limits. He denies any fever, chills, nausea, vomiting, chest pain, or shortness of breath. Patient is in stable condition and ready for discharge. Seen indepedently from Calista JACOBS. Patient POD #1 s/p lap appy. Doing well post op, tolerating solid diet with good pain control. Ambulating without difficulty. Using incentive spirometer. VSS. Abd exam benign with appropriate post op tenderness, dressings intact. AM labs not repeated this AM- leukocytosis was preoperative. He is doing well and is stable for dc to home today. F/u in office in 1 week. Patient comfortable with plan. <Marleny Guzman PA-C - Last Filed: 01/25/25 07:56> Time Spent With Patient Time: Total time managing care of this patient today ____ minutes. <Aubrey Grigsby - Last Filed: 01/25/25 07:26> Quality Stroke Does the patient have a stroke diagnosis?: No <Aubrey Keith Last Filed: 01/25/25 07:26> VTE Prior VTE?: No <Aubrey Grigsby Last Filed: 01/25/25 07:26> VTE Risk Level:: Surgical - low <[facility] Last Filed: 01/25/25 07:26> VTE Device Contraindication: N/A - Device Ordered <[facility] Last Filed: 01/25/25 07:26> VTE Drug Contraindication: Treatment Not Indicated <[facility] Last Filed: 01/25/25 07:26>
[2025-01-25 07:59] VITALS: BP 116/70; PULSE 68; RESP 16; TEMP 37.1; O2SAT 98
--- NOTE | 2025-01-25 08:11 | HO.POSTANES ---
Post Anesthesia Evaluation Post Anesthesia Evaluation Date of Service: 01/25/25 Vital Signs: Vital Signs Temp Pulse Resp BP Pulse Ox O2 Del Method 01/25/25 07:59 98.7 F 68 16 116/70 98 Room Air 01/25/25 03:54 98.1 F 71 18 115/58 L 98 Room Air Anesthesia: General Mental Status: Awake Pain Control: Satisfactory Nausea/Vomiting: None Hydration: Adequate Anesthesia-Related Issues: No Anes. Related Issues
--- NOTE | 2025-01-25 08:29 | MHC.CM.PN ---
Patient medically cleared for dc home self care via private transport.
--- NOTE | 2025-01-25 10:15 | PM.DS ---
DS: Providers Provider Date of Service: 01/25/25 Date of admission: 01/24/25 01:41 Date of discharge: 01/25/25 Primary care physician: Juan Francisco Casiano MD Attending physician on admission: Jordana Dixon Attending physician on discharge: Rob Carrera DS: Diagnosis Discharge Diagnosis (1) S/P laparoscopic appendectomy: Status: Acute DS: Summary Hospital Course Hospital Course: HPI AT ADMISSION: Bon Stoner is a 24 year old male with no significant PMH who presented to the ED with complaints of RLQ pain. Patient reports he developed epigastric/periumbilical pain two days ago that eventually migrated to the RLQ. He was seen at [facility] and diagnosed with gastritis and sent home. He however had persistence and worsening of the pain prompting him to seek evaluation at [facility]. The pain was associated with nausea and multiple episodes of vomiting. He denies fever, chills, diarrhea. Work up in the ED included a CBC, BMP, LFTs which was significant for a leukocytosis of 16.6. CT scan abd/pelvis showed dilated and thick-walled appendix with appendicoliths and mild adjacent periappendiceal stranding/haziness. He denies previous abdominal surgery. He reports occasional drinking of a wine cooler and reports daily marijuana smoking. HOSPITAL COURSE: The patient was admitted to the surgical service for further treatment of the acute appendicitis. He elected to proceed with laparoscopic appendectomy. He was added onto the OR schedule for that day. On 01/24/25, a laparoscopic appendectomy was performed by Dr. Carrera without complication. The patient tolerated the procedure well. He had an uncomplicated recovery course. On POD #1, he felt well and was tolerating a solid diet without nausea or vomiting, had good pain control and was ambulating without difficulty. He was hemodynamically stable. His abdomen was benign with appropriate post op tenderness with intact dressings. He felt ready for discharge. He was discharged to home on 01/25/25 in stable condition. He is to follow up in the office in 1 week. Status at Discharge Functional status at discharge: independent ambulation Overall status at discharge: patient is progressing back to baseline Time Attestation Discharge Coordination Time (in mins): 25 Quality: Safe Use of Opioids Does Pt have an Active Cancer Diagnosis on the Problem List?: No Quality: Stroke Does the patient have a stroke diagnosis?: No Physical Exam Vital Signs: Vital Signs: Last Vital Signs Temp 98.7 F 01/25/25 07:59 Pulse 68 01/25/25 07:59 Resp 16 01/25/25 07:59 BP 116/70 01/25/25 07:59 Pulse Ox 98 01/25/25 07:59 O2 Del Method Room Air 01/25/25 07:59 BMI result Body Mass Index 18.5 Const: General: comfortable, no acute distress and alert Orientation/consciousness: patient oriented x3 Resp: Effort & Inspection: normal respiratory effort GI: Inspection: No distended and Yes incision (dressings intact ) Palpation (GI): Soft to palpation, Tenderness to palpation present (GI) (mild incisional) and no guarding Skin: General skin exam: no rashes or lesions noted Neuro: General: patient oriented x3 and moves all extremities DS: Data Data Completed and Pending Pending studies at discharge: Pending at discharge 01/24/25 13:38 Surgical [PTH] Routine Labs on day of discharge: Preliminary micro results at discharge 01/24/25 00:37 Blood Culture - Preliminary Blood - Venous No growth after 24 hours. 01/24/25 00:37 Blood Culture - Preliminary Blood - Venous No growth after 24 hours. Discharge Plan Discharge Anticipated Discharge Date/Time: 01/25/25 07:31 Patient Disposition: Home, Self-Care Discharge Diagnosis: acute appendicitis s/p laparoscopic appendectomy Referrals: Rob Carrera MD [Physician] - 1 Week Juan Francisco Casiano MD [Primary Care Provider] - 1 Week Discharge Medications: New docusate sodium [Colace] 100 mg capsule 100 mg PO BID Qty: 30 0RF oxycodone 5 mg tablet 5 mg PO Q4H PRN (Reason: pain (scale score 7-10)) Qty: 24 0RF Rx Instructions: Partial Fill upon patient request. Continued albuterol 90 mcg/actuation Aerosol INHALATION Zyrtec 10 mg Capsule Discharge Orders: Discharge Order (Routine); Ordered 01/25/25 Ordered By: Marleny Guzman Diet: Advance to usual diet Activity on Discharge: No heavy lifting Stand Alone Forms: Patient Portal Discharge page, Work/School Release Print Language: Lithuanian Activity Restrictions/Additional Instructions: If the incision area is tender, you may apply an ice pack for short intervals (No more than 20 minutes on, followed by at least 20 minutes off). Do not apply heat. Do not use creams, lotions, or topical antibiotics. Ok to shower. Remove clear dressings 3 days following your procedure. You have steri strips (small white cloth strips) covering your incision- these will fall off ~1 week. No heavy lifting (>10lbs) or strenuous activity! Take Tylenol Extra-strength 1-2 tabs every 6 hours for the first day, then as needed. Oxycodone every 6-8 hours as needed for pain. Colace 100 mg every day as needed for constipation. Follow up in office with Dr. Carrera in 1 week. ([phone]) Call Your Doctor If: -Your temperature exceeds 101.5? F -You experience excessive pain or swelling -You have an unexpected reaction to medication -You have excessive bleeding -You experience continued vomiting/nausea -Your incision begins to separate -Your incision shows signs of infection such as increased redness, swelling, excessive pain, drainage (light blood or clear fluid is normal) or heat Care Plan Goals: Return to baseline health and resume normal activities following recovery period. Health Concerns: acute appendicitis Plan of Treatment: s/p laparoscopic appendectomy f/u in office in 1 week Assessment: Doing well post op. Patient Instructions: Laparoscopic Appendectomy (DC) Discharge Date/Time: 01/25/25 09:26
== END 2025-01-25 09:26 | disposition home or self-care (01) | DRG 234 ==
LOC: HO.ED 01-24 00:17 → HO.EDOVER 01-24 01:43 → HO.S3 01-24 10:01
PROVIDERS: Physician Assistant; Surgery; Admitting Provider Surgery; Emergency Provider Emergency Medicine; PCP Pediatrics; Visit Provider Surgery
PROC: 0DTJ4ZZ Resection of Appendix, Percutaneous Endoscopic Approach (ICD-10-PCS; CPT 44970; principal; 2025-01-24 11:40)
DX: K35.80 Unspecified acute appendicitis (principal)
CPT/HCPCS: 36415; 74177; 80053; 83605; 83690; 85025; 87040; 88304; 99221; 99285; J1100; J1885; J2003; J2250; J2270; J2405; J2543; J2704; J3010; J7120; Q9967

== ENCOUNTER → 2025-01-23 20:59 | Outpatient (BNV) | payer MEDICAID, SELFPAY | PROVIDERS: Emergency Provider Emergency Medicine; PCP Pediatrics; Visit Provider Radiology Diagnostic Radiology | DX: K35.80 Unspecified acute appendicitis (principal); R18.8 Other ascites | CPT/HCPCS: 74177 ==

== ENCOUNTER → 2025-01-24 01:41 | Outpatient (BNV) | payer OTHER, SELFPAY | PROVIDERS: Admitting Provider Surgery; Emergency Provider Emergency Medicine; PCP Pediatrics; Visit Provider Physician Assistant Surgical | DX: Z90.49 Acquired absence of other specified parts of digestive tract (principal) | CPT/HCPCS: 44970; 99024; 99222; 99499 ==

== ENCOUNTER 2025-02-01 10:21 | Outpatient (AMB) | payer OTHER, SELFPAY ==
--- NOTE | 2025-02-01 10:23 | MHC.OFFVIS ---
Vital Signs 02/01/25 10:28 Height 5 ft 9 in Weight 126 lb BMI 18.6 BP 109/62 Blood Pressure Location Lt brachial Position Sitting Pulse 79 Intake Visit Reasons: s/p appendectomy 01/24/25 Intake Note: Patient is seen in office for post op assessment post laparoscopic appendectomy. 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 Operative findings were consistent with acute appendicitis without perforation. Since discharge he reports feeling much improved with no abdominal pain. He is eating well without nausea or vomiting. [facility], [facility] Medical History (Updated 02/01/25 @ 10:33 by Rob Carrera MD) Marijuana smoker Pneumonia Asthma Allergies Surgical History (Updated 02/01/25 @ 10:33 by Rob Carrera MD) History of laparoscopic appendectomy (01/24/25) Hx of wisdom tooth extraction Hx of chest tube placement Social History Household Members Other:: 5 Housing: House Comment: after OR Patient Tobacco Use Status: Never used Tobacco Substance Use Type: Marijuana service: No Physical Exam Const General: comfortable Nutritional Appearance: well nourished Orientation/consciousness: patient oriented x3 Resp Effort & Inspection: normal respiratory effort GI Other: Dressings removed and incisions found to be clean, dry, and intact. No hernia, hematoma or infection. Neuro General: patient oriented x3 Extrem General: Yes normal to inspection Assessment & Plan Assessment & Plan (1) Acute appendicitis: Code(s): K35.80 - Unspecified acute appendicitis Category: Medical Qualifiers: Acute appendicitis type: with localized peritonitis Appendicitis abscess presence: unspecified whether abscess present Appendicitis gangrene presence: unspecified whether gangrene present Appendicitis perforation presence: unspecified whether perforation present Qualified Code(s): K35.30 - Acute appendicitis with localized peritonitis, without perforation or gangrene (2) S/P laparoscopic appendectomy: Onset Date: 01/24/25 Code(s): Z90.49 - Acquired absence of other specified parts of digestive tract Category: Surgical Plan 24-year-old male patient returning 1 week following laparoscopic appendectomy for acute appendicitis. He tolerated the procedure well and his wounds are healing nicely. He should continue to avoid lifting greater than 10 lb for the next week after which he may resume normal activity. He may return to work today without restrictions other than no lifting for the next week. He reports that his job does not require any lifting. He should follow up as needed. Medications: Discontinued oxycodone Partial Fill upon patient request. Discontinued Reason: Patient Completed Course 5 mg PO Q4H PRN 24 tabs 0RF pain (scale score 7-10) Coding Level of Care Code Global (26672) Diagnoses Acute appendicitis with localized peritonitis, unspecified whether abscess present, unspecified whether gangrene present, unspecified whether perforation present K35.30 Acute appendicitis type: with localized peritonitis Appendicitis abscess presence: unspecified whether abscess present Appendicitis gangrene presence: unspecified whether gangrene present Appendicitis perforation presence: unspecified whether perforation present S/P laparoscopic appendectomy Z90.49
[2025-02-01 10:28] VITALS: BP 109/62; PULSE 79; BMI 18.6
== END 2025-02-01 10:30 | disposition home or self-care (01) ==
LOC: HO.HGS 10:22
PROVIDERS: PCP Pediatrics; Visit Provider Surgery
DX: K35.30 Acute appendicitis with localized peritonitis, without perforation or gangrene (principal); Z90.49 Acquired absence of other specified parts of digestive tract
CPT/HCPCS: 99024

== ENCOUNTER → 2025-02-01 10:21 | Outpatient (BNVA) | payer OTHER, SELFPAY | PROVIDERS: PCP Pediatrics; Visit Provider Surgery | DX: K35.30 Acute appendicitis with localized peritonitis, without perforation or gangrene (principal); Z90.49 Acquired absence of other specified parts of digestive tract | CPT/HCPCS: 99212 ==